=== PATIENT | female | born 1995 | race Caucasian/White ===

== ENCOUNTER 2016-08-01 01:52 | Emergency (ER) | payer OTHER ==
[~2016-08-01] VITALS: Ht 160 cm; Wt 60.5 kg
[2016-08-01 01:55] VITALS: Ht 160 cm; Wt 60.5 kg
[2016-08-01] MEDS ORDERED: morphine 10 MG INJ IM ONE (02:30)
[2016-08-01 02:36] LABS: ADD UMIC YES; URINE BILIRUBIN (Dip) NEGATIVE (NEGATIVE); URINE BLOOD (Dip) 3+ (NEGATIVE); URINE COLOR LT. YELLOW (YELLOW); URINE GLUCOSE (Dip) NEGATIVE (NEGATIVE); URINE KETONES (Dip) NEGATIVE (NEGATIVE); URINE LEUKOCYTE ESTERASE (Dip) 1+ (NEGATIVE); URINE NITRITE (Dip) NEGATIVE (NEGATIVE); URINE TOTAL PROTEIN (Dip) 1+ (NEGATIVE); URINE UROBILINOGEN (Dip) 0.2 E.U./dL (0.1-1.0)
[2016-08-01 02:45] LABS: URINE RBCS >50 /HPF (0)
[2016-08-01 02:46] LABS: BACTERIA,URINE OCCASIONAL; SQUAMOUS EPITHELIAL CELL,UR MODERATE
[2016-08-01] MEDS ORDERED: NAPR-688 PO (03:13)
[2016-08-01] MEDS ORDERED: CIPR500T4 PO (03:13)
[2016-08-01] MEDS ORDERED: NITR-58 PO (03:13)
[2016-08-01] MEDS ORDERED: HYDR-906 PO (03:13)
[2016-08-01 03:30] VITALS: BP 118/58; PULSE 76; RESP 16; TEMP 98.5
--- NOTE | 2016-08-01 03:32 | ERD ---
ER Documentation Chief Complaint Date/Time DATE: 08/01/16 TIME: 03:28 Chief Complaint right flank pain x 1 day HPI 19-year-old female friends with right flank pain and some suprapubic discomfort for 1 day. States that she has had a urinary tract infection before that felt this way. 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 She does have tenderness on palpation and certain movements make her right flank pain worse. No fevers or chills. ROS All systems reviewed and are negative except as per history of present illness. Medications Home Meds Active Scripts Hydrocodone/Acetaminophen ([place] 5-325 Tablet) 1 Each Tablet, 1 EACH PO Q6 for SEVERE PAIN LEVEL 7-10, #10 TAB Prov:HUNTER LOOMIS 08/01/16 Naproxen* (Naproxen*) 500 Mg Tablet, 500 MG PO BID Y for PAIN, #14 TAB Prov:HUNTER LOOMIS 08/01/16 Nitrofurantoin Monohyd Macrocr* (Macrobid*) 100 Mg Capsr, 100 MG PO HS for 7 Days, CAP Prov:HUNTER LOOMIS 08/01/16 Ciprofloxacin Hcl* (Ciprofloxacin Hcl*) 500 Mg Tablet, 500 MG PO BID for 7 Days , TAB Prov:HUNTER LOOMIS 08/01/16 Allergies Allergies: Coded Allergies: Sulfa (Sulfonamide Antibiotics) (Verified Allergy, Unknown, 08/01/16) Physical Exam Vitals Vital Signs Date Time Temp Pulse Resp B/P Pulse Ox O2 Delivery O2 Flow Rate FiO2 08/01/16 01:55 98.3 74 20 125/60 100 Physical Exam Const: [] No distress Head: Atraumatic Eyes: Normal Conjunctiva ENT: Normal External Ears, Nose and Mouth. Resp: Clear to auscultation bilaterally Cardio: Regular rate and rhythm, no murmurs Abd: Soft, non tender, non distended. Normal bowel sounds Skin: No petechiae or rashes Back: No midline or mild right flank tenderness to palpation. Positive CVA tenderness Results 24 hrs Laboratory Tests Test 08/01/16 02:10 Urine Color LT. YELLOW Urine Clarity CLOUDY Urine pH 6.0 Urine Specific [place] 1.025 Urine Ketones NEGATIVE Urine Nitrite NEGATIVE Urine Bilirubin NEGATIVE Urine Urobilinogen 0.2 E.U./dL Urine Leukocyte Esterase 1+ Urine Microscopic RBC >50/HPF Urine Microscopic WBC >200/HPF Urine Squamous Epithelial Cells MODERATE Urine Bacteria OCCASIONAL Urine Hemoglobin 3+ Urine Glucose NEGATIVE% Urine Total Protein 1+ Current Medications Medications (Trade) Dose Ordered Sig/Hector Route PRN Reason Start Time Stop Time Status Last Admin Dose Admin Morphine Sulfate (morphine) 4 mg ONCE ONCE IM 08/01/16 02:30 08/01/16 02:31 DC 08/01/16 02:33 Procedures/MDM Pyelonephritis without any signs of systemic involvement. Young healthy patient I believe she will do well with a course of outpatient antibiotics. Discharging her with Cipro and Macrobid as well as naproxen for inflammation and [place] if she has severe pain. In the emergency room she was given morphine injection as she had Eren taken Tylenol with minimal relief. This decreased her pain she was feeling much better. Number care follow-up in the next 2-3 days and return precautions for fevers. Departure Diagnosis: Primary Impression: Pyelonephritis Condition: Stable Patient Instructions: Pyelonephritis, Female (Adult) Referrals: [facility] YOU HAVE RECEIVED A MEDICAL SCREENING EXAM AND THE RESULTS INDICATE THAT YOU DO NOT HAVE A CONDITION THAT REQUIRES URGENT TREATMENT IN THE EMERGENCY DEPARTMENT. FURTHER EVALUATION AND TREATMENT OF YOUR CONDITION CAN WAIT UNTIL YOU ARE SEEN IN YOUR DOCTORS OFFICE WITHIN THE NEXT 1-2 DAYS. IT IS YOUR RESPONSIBILITY TO MAKE AN APPOINTMENT FOR FOLOW-UP CARE. IF YOU HAVE A PRIMARY DOCTOR --you should call your primary doctor and schedule an appointment IF YOU DO NOT HAVE A PRIMARY DOCTOR YOU CAN CALL OUR PHYSICIAN REFERRAL HOTLINE AT IF YOU CAN NOT AFFORD TO SEE A PHYSICIAN YOU CAN CHOSE FROM THE FOLLOWING [facility] [id number] [facility]. [facility] [address] [employer] [facility] [facility] [address] [facility] [facility] [address] [facility]. [facility] [address] [facility]. [facility]. [address] Additional Instructions: Call your primary care doctor TOMORROW for an appointment during the next 2-3 days.See the doctor sooner or return here if your condition worsens before your appointment time. HUNTER LOOMIS DO Aug 01, 2016 03:32
== END 2016-08-01 03:31 | disposition home or self-care (01) ==
LOC: E/R 01:52
DX: N12 Tubulo-interstitial nephritis, not specified as acute or chronic (principal)
CPT/HCPCS: 81001; 96372; 99284; J2270; 81003

== ENCOUNTER 2017-11-26 17:26 | Emergency (ER) | END 2017-11-26 21:55 | disposition home or self-care (01) ==